=== PATIENT | female | born 1985 | race Caucasian/White ===

== ENCOUNTER 2018-05-07 21:16 | Emergency (ER) | payer SELFPAY ==
[2018-05-07 21:39] VITALS: BP 129/72
--- NOTE | 2018-05-07 21:45 | ED Physician Documentation ---
General Adult - HISTORIAN Historian: patient - HPI Stated Complaint: L Abd pain Chief Complaint: General Adult Additional Information: Five days nausea and low back pain, L low abdomen pain. Four positive tests at home. LNMP 04/05/18. . Quit her [employer] job this evening because she was expected to pull on people. Wants to know if she is . Urine HCG positive in ER. - ROS CONST: no problems - PAST HX Past History: none Allergies/Adverse Reactions: Allergies Allergy/AdvReac Type Severity Reaction Status Date / Time No Known Allergies Allergy Verified 05/07/18 21:39 Home Medications: Ambulatory Orders Medication Instructions Recorded Ranitidine HCl [Acid Onshore Diver] 1 tab PO BID 05/07/18 - SOCIAL HX Smoking History: non-smoker - FAMILY HX Family History: Yes (M with heart disease in 40's, fatal RI in 50's) - VITAL SIGNS Vital Signs: Vital Signs Temp Pulse Resp BP Pulse Ox 9732 F H 101 H 16 129/72 100 05/07/18 21:20 05/07/18 21:20 05/07/18 21:20 05/07/18 21:20 05/07/18 21:20 - REVIEWED ASSESSMENTS Nursing Assessment Reviewed: Yes Vitals Reviewed: Yes General Adult Physical Exam - PHYSICAL EXAM GENERAL APPEARANCE: no distress EENT: eye inspection normal, ENT inspection normal NECK: normal inspection, supple RESPIRATORY: no resp distress, breath sounds normal CVS: reg rate & rhythm, heart sounds normal ABDOMEN: soft, normal bowel sounds, no distension, non-tender BACK: normal inspection, no CVA tenderness SKIN: warm/dry, normal color EXTREMITIES: normal range of motion (gait and stance), no evidence of injury NEURO: CN's nml as tested, motor nml, sensation nml, cognition normal Discharge Clincal Impression: Qualifiers: Weeks of gestation: less than 8 weeks Qualified Code(s): Z3A.01 - Less than 8 weeks gestation of Referrals: Primary Doctor,No [Primary Care Provider] - 2 Days Condition: Good Disposition: HOME, SELF-CARE Decision to Admit: NO Decision Time: 21:48
[2018-05-08 13:20] LABS: APPEARANCE,URINE CLOUDY (CLEAR); COLOR,URINE YELLOW (YELLOW); OCCULT BLOOD,URINE TRACE-INTACT (NEGATIVE)
[2018-05-08 13:21] LABS: PH URINE 5.5 (5.0 - 8.0); URINE HCG POSITIVE (NEGATIVE); UROBILINOGEN URINE 0.2 Eu (0.2-1.0)
== END 2018-05-07 21:53 | disposition home or self-care (01) ==
LOC: ED 21:16
DX: Z33.3 Pregnant state, gestational carrier (principal); Z3A.01 Less than 8 weeks gestation of pregnancy
CPT/HCPCS: 81002; 81025; 99282

== ENCOUNTER 2018-07-26 19:54 | Emergency (ER) | payer OTHER ==
--- NOTE | 2018-07-26 20:25 | ED Physician Documentation ---
General Adult - HISTORIAN Historian: patient - HPI Chief Complaint: General Adult Additional Information: Intro self as PATIENT [facility]. pt presents to the ED c/o redness at umbilical site approx 2 cm inferior to umbilicus . pt is one day post lap choley done at [facility]. Pt reports she is 16 weeks . pt denies abdominal/back pain, any pain, bleeding or leak of fluid, fever, chills, weakness. pt denies current chest pain, dyspnea, syncope/near syncope, headache, dizziness, visual disturbances, n/v/d, fever/chills, rash, sick contacts, dysuria, trauma. melena or hematochezia, bleeding or easy bruising, change in bowel or bladder function, no recent weight loss/gain, anxiety or depression. ROS Negative unless otherwise specified. A0 pt a/o x 3 skin pwd eupneic. EXAM: Constitutional: General Appearance: healthy-appearing, well-nourished, and well- developed. Level of Distress: NAD. Ambulation: ambulating normally. Psychiatric: Insight: good judgement.Mental Status: normal mood and affect and active and alert. Neuro: Orientation: to time, place, and person. Memory: recent memory normal and remote memory normal. Normal Gait. Full ROM. Motor and sensory intact. No Tremor Head: normocephalic and atraumatic. Eyes: Lids and Conjunctivae: no discharge or pallor and non-injected. Sclerae: non-icteric. ENMT: Ears: no lesions on external ear. Hearing: hearing no deficits . Nose: no lesions on external nose or nasal discharge. Lips, Teeth, and Gums: no mouth or lip ulcers. Oropharynx: moist mucous membranes. Neck: supple, trachea midline, no masses Lungs: Respiratory effort: no dyspnea. good air movement. Abdomen:no guarding, mildly gravid. #4:2-3 cm incisions from lap choley that are clean/dry/intact covered with dermabond. no redness, tenderness, ecchymosis, drainage, or edema to these sites. approx 2 cm area of redness inferior to the umbilicus. no tenderness. Musculoskeletal:Full ROM Extremities: no cyanosis or edema. Skin: Inspection and palpation: pink warm dry. No ecchymosis cap refill less than 3 seconds. I offered initial evaluation including examination, labs, and to facilitate transfer [place] where her surgeon, Dr Cosme is located. i explained benefits and risks including MVA, , and worsening condition as well as the benefit of seeing her surgeon as we have no surgeon or OB speciality or Ultrasound available here. pt refused care and signed out AMA. - ROS CONST: other (recent surgery. ). denies: fever, sweating, recent illness, weakness, weight loss EYES/ENT: none. denies: problems with vision, sore throat, nasal drainage, nasal congestion CVS/RESP: denies: chest pain, shortness of breath, cough GI/: denies: abdominal pain, problems urinating, vomiting, nausea, diarrhea, black stools MS/SKIN/LYMPH: other (redness at umbilicus ). denies: calf pain, neck pain, joint pain, leg swelling, swollen glands, leg pain, back pain, ankle swelling NEURO/PSYCH: denies: headache, fainting, dizziness, tingling, numbness, difficulty walking, difficulty with speech, anxiety, depression - PAST HX Past History: none Surgeries/Procedures: cholecystectomy Allergies/Adverse Reactions: Allergies Allergy/AdvReac Type Severity Reaction Status Date / Time No Known Allergies Allergy Verified 07/26/18 20:13 Home Medications: Ambulatory Orders Medication Instructions Recorded Ranitidine HCl [Acid Operations Dispatcher] 1 tab PO BID 05/07/18 Metoclopramide HCl [Reglan] 5 mg PO DAILY 07/26/18 oxyCODONE HCL/ACETAMINOPHEN 1 mg PO Q4 07/26/18 [Percocet 5/325] - SOCIAL HX Smoking History: non-smoker Alcohol Use: none Drug Use: none - FAMILY HX Family History: No - VITAL SIGNS Vital Signs: Vital Signs Temp Pulse Resp BP Pulse Ox 129/72 05/07/18 21:53 - REVIEWED ASSESSMENTS Nursing Assessment Reviewed: Yes Vitals Reviewed: Yes General Adult Physical Exam - PHYSICAL EXAM GENERAL APPEARANCE: no distress NEURO: oriented X3, motor nml, mood/affect nml Discharge Clincal Impression: Left against medical advice Condition: Good Disposition: 07 AGAINST MEDICAL ADVICE Decision to Admit: NO Date of Decison to Admit: 07/26/18 Decision Time: 20:20
[2018-07-26 20:28] VITALS: BP 122/76
== END 2018-07-26 20:25 | disposition left against medical advice (07) ==
LOC: ED 19:54
DX: L98.8 Other specified disorders of the skin and subcutaneous tissue (principal); Z98.890 Other specified postprocedural states; Z33.1 Pregnant state, incidental
CPT/HCPCS: 99281